=== PATIENT | male | born 1975 ===

== ENCOUNTER 2020-08-11 19:22 | Emergency (ER) | payer SELFPAY ==
[~2020-08-11] VITALS: Ht 190.5 cm; Wt 96.1 kg
[2020-08-11] MEDS ORDERED: LIDOCAINE 2%, 20ML SQ ONE (19:30)
--- NOTE | 2020-08-11 22:31 | NUR ---
CHARTING CLERK: PT. TO ROOM FROM LOBBY AT THIS TIME. STEADY GAIT.
[2020-08-11] MEDS ORDERED: LIDOCAINE-MPF 1%, 5ML ONE ×2 (22:34→22:41)
[2020-08-11] MEDS ORDERED: NEOSPORIN OINT. PKT 1 PACKET ONE ×2 (23:33→23:37)
[2020-08-11 23:53] VITALS: BP 139/91
== END 2020-08-11 23:55 | disposition home or self-care (01) ==
LOC: ED 23:10
DX: S51.812A Laceration without foreign body of left forearm, initial encounter (principal); W26.0XXA Contact with knife, initial encounter; Y93.89 Activity, other specified; Y92.009 Unspecified place in unspecified non-institutional (private) residence as the place of occurrence of the external cause; Y99.8 Other external cause status
CPT/HCPCS: 12032; 99284